=== PATIENT | female | born 1935 ===

== ENCOUNTER 2022-01-15 07:45 | Inpatient (IN) | payer OTHER ==
[~2022-01-15] VITALS: Ht 162.6 cm; Wt 81.6 kg
[2022-01-15] MEDS ORDERED: LYRICA20 MG/1 ML PO (11:32)
[2022-01-15] MEDS ORDERED: LEVO-T25 MCG PO (11:32)
[2022-01-15] MEDS ORDERED: LANTUS SOL100 UNIT/1 (11:32)
[2022-01-15] MEDS ORDERED: PLAVIX75 MG PO (11:33)
[2022-01-15] MEDS ORDERED: COZAAR25 MG PO (11:33)
[2022-01-15] MEDS ORDERED: ISOSORBIDE DINI30 MG PO (11:33)
[2022-01-15] MEDS ORDERED: SINGULAIR 4MG4 MG PO (11:34)
[2022-01-15] MEDS ORDERED: GLIPIZIDE ER2.5 MG PO (11:34)
[2022-01-15] MEDS ORDERED: PROAIR RESPICL90 MCG IH (11:35)
[2022-01-15] MEDS ORDERED: ZIPSOR25 MG PO (11:35)
[2022-01-15] MEDS ORDERED: ACID REDUCER20 M1 PO (11:35)
[2022-01-15] MEDS ORDERED: CLONAZEPAM0.5 MG PO (11:35)
[2022-01-21] MEDS ORDERED: PERCOCET 5-3251 EACH PO (07:40)
[2022-01-21] MEDS ORDERED: CEFADROXIL500 MG PO (07:40)
== END 2022-01-22 10:12 | DRG 483 ==
LOC: O/R 01-20 05:45 → SURG 01-20 05:45 → SURH 01-20 07:45 → SURG 01-20 17:24
PROVIDERS: ADMIT Orthopaedic Surgery; ATTEND Orthopaedic Surgery
PROC: 0RRK00Z Replacement of Left Shoulder Joint with Reverse Ball and Socket Synthetic Substitute, Open Approach (ICD-10-PCS; principal; 2022-01-20 16:45)
DX: M75.102 Unspecified rotator cuff tear or rupture of left shoulder, not specified as traumatic (principal); M19.012 Primary osteoarthritis, left shoulder; I10 Essential (primary) hypertension; E11.9 Type 2 diabetes mellitus without complications; Z20.822 Contact with and (suspected) exposure to COVID-19

== ENCOUNTER 2022-01-25 22:47 | Emergency (ER) | payer OTHER ==
[~2022-01-25] VITALS: Ht 162.6 cm; Wt 86.2 kg
[~2022-01-25 22:47] MED LIST: ACID REDUCER20 M1 PO; CEFADROXIL500 MG PO; CLONAZEPAM0.5 MG PO; COZAAR25 MG PO; GLIPIZIDE ER2.5 MG PO; ISOSORBIDE DINI30 MG PO; LANTUS SOL100 UNIT/1; LEVO-T25 MCG PO; LYRICA20 MG/1 ML PO; PERCOCET 5-3251 EACH PO; PLAVIX75 MG PO; PROAIR RESPICL90 MCG IH; SINGULAIR 4MG4 MG PO; ZIPSOR25 MG PO
== END 2022-01-26 01:43 ==
LOC: ER 22:47
DX: S40.012A Contusion of left shoulder, initial encounter (principal); W19.XXXA Unspecified fall, initial encounter; Y93.9 Activity, unspecified; Y92.9 Unspecified place or not applicable; Y99.9 Unspecified external cause status